=== PATIENT | female | born 2000 | race African-American/Black ===

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

== ENCOUNTER 2022-12-25 22:47 | Emergency (ER) | payer MEDICAID ==
[~2022-12-25] VITALS: Ht 175.3 cm; Wt 105.5 kg
[~2022-12-25 22:47] MED LIST changes: +PRILOTC PO; +VALTREX 50500 MG/TAB PO
[2022-12-25 23:10] VITALS: BP 139/91; TEMP 98
[2022-12-26 01:27] VITALS: PULSE 80
== END 2022-12-26 01:27 | disposition home or self-care (01) ==
LOC: COL.ER 22:47
DX: N89.8 Other specified noninflammatory disorders of vagina (principal); Z28.310 Unvaccinated for COVID-19